=== PATIENT | male | born 1940 | race Caucasian/White ===

== ENCOUNTER 2018-07-17 11:12 | Emergency (ER) | payer MEDICARE, OTHER ==
[2018-07-17] MEDS: Lidocaine 2% Jelly 10 ML Urojet MUCMEM ONE (12:07)
--- NOTE | 2018-07-17 12:24 | EDM.PDOC ---
ED HPI GENERAL MEDICAL PROBLEM - General Chief Complaint: Genitourinary Problem Stated Complaint: PAIN IN BACK Time Seen by Provider: 07/17/18 11:45 Source of Information: Reports: Patient, Family History Limitations: Reports: No Limitations - History of Present Illness INITIAL COMMENTS - FREE TEXT/NARRATIVE: 78-year-old male who developed urinary urgency and frequency with left lower abdominal pain and left back pain overnight. No fevers or chills. He does have a history of prostatitis. Mild nausea but no vomiting. Onset: Sudden Severity: Moderate Associated Symptoms: Reports: Loss of Appetite, Malaise. Denies: Fever/Chills ( Patient is fairly uncomfortable), Headaches, Shortness of Breath bladder Pain Score (Numeric/FACES): 6 - Related Data Allergies Allergy/AdvReac Type Severity Reaction Status Date / Time No Known Allergies Allergy Verified 07/17/18 11:39 Home Meds: Home Meds Budesonide/Formoterol [Symbicort 80-4.5 MCG] 1 puff INH BID 07/17/18 [History] Levothyroxine 75 mcg PO DAILY 07/17/18 [History] Multivitamin [Multi-Vitamin Daily] 1 tab PO DAILY 07/17/18 [History] Primidone 50 mg PO TID 07/17/18 [History] acetaZOLAMIDE [Diamox] 250 mg PO BID 07/17/18 [History] ED ROS GENERAL - Review of Systems Review Of Systems: See Below Constitutional: Reports: Malaise. Denies: Fever, Chills Respiratory: Denies: Shortness of Breath Cardiovascular: Denies: Chest Pain GI/Abdominal: Reports: Abdominal Pain (Lower abdomen slightly to the left), Nausea. Denies: Vomiting : Reports: Frequency, Urgency Skin: Reports: No Symptoms Neurological: Reports: No Symptoms ED EXAM, GI/ABD - Physical Exam Exam: See Below Exam Limited By: No Limitations General Appearance: Alert, Mild Distress (Fairly uncomfortable) Eyes: Bilateral: Normal Appearance Respiratory/Chest: No Respiratory Distress, Lungs Clear Cardiovascular: Regular Rate, Rhythm GI/Abdominal Exam: Soft, Other (Some discomfort to palpation across the lower abdomen but no urinary distention appreciated) Neurological: Alert, Oriented Course - Vital Signs Last Recorded V/S: Last Vital Signs Temp 96.8 F 07/17/18 12:31 Pulse 58 L 07/17/18 12:31 Resp 16 07/17/18 12:31 BP 163/78 H 07/17/18 12:31 Pulse Ox 96 07/17/18 12:31 - Orders/Labs/Meds Orders: Active Orders 24 hr Category Date Time Status UA W/MICROSCOPIC [URIN] Stat Lab 07/17/18 12:11 Ordered Saline Lock Insert [OM.PC] Routine Oth 07/17/18 12:42 Ordered Labs: Laboratory Tests 07/17/18 Range/Units 12:11 Urine Color Yellow Urine Appearance Slightly cloudy Urine pH 6.0 (4.5-8.0) Ur Specific [place] 1.020 (1.008-1.030) Urine Protein Negative (NEGATIVE) mg/dL Urine Glucose (UA) Normal (NEGATIVE) mg/dL Urine Ketones Negative (NEGATIVE) mg/dL Urine Occult Blood Large (NEGATIVE) Urine Nitrite Negative (NEGAITVE) Urine Bilirubin Negative (NEGATIVE) Urine Urobilinogen Normal (NORMAL) mg/dL Ur Leukocyte Esterase Negative (NEGATIVE) Urine RBC 30-40 H (0-5) Urine WBC 0-5 (0-5) Ur Epithelial Cells Few Amorphous Sediment Not seen Urine Bacteria Few Urine Mucus Not seen Meds: Medications Discontinued Medications Generic Name Dose Route Start Last Admin Trade Name Freq PRN Reason Stop Dose Admin Ketorolac Tromethamine 30 mg 07/17/18 12:42 07/17/18 12:48 Toradol IVPUSH 07/17/18 12:43 30 mg ONETIME ONE Administration Lidocaine HCl 10 ml 07/17/18 11:32 07/17/18 12:07 Xylocaine 2% Jelly MUCMEM 07/17/18 11:33 10 ml ONETIME ONE Administration Sodium Chloride 10 ml 07/17/18 12:42 07/17/18 12:50 Saline Flush FLUSH 10 ml ASDIRECTED PRN Administration Keep Vein Open Tamsulosin HCl 0.4 mg 07/17/18 12:42 07/17/18 12:50 Flomax PO 07/17/18 12:43 0.4 mg ONETIME ONE Administration - Re-Assessments/Exams Free Text/Narrative Re-Assessment/Exam: 07/17/18 12:23 Bladder scan was obtained which showed a nondistended bladder. A Leonard catheter was placed for a good UA and draining of the bladder and only 70 mL was released. A CT the abdomen and pelvis was obtained to rule out renal stone on the left side. 07/17/18 12:42 Other than some hematuria the urine was negative. A CT did show a distal ureteral stone that was very small just 2 mm. He was given 30 mg of IV Toradol and 4 mg of oral Flomax. 07/17/18 13:14 Patient will be discharged with 10 additional doses of 10 mg Toradol to take every 6 hours, and should recheck in 48 hours if not improving. He should recheck sooner if pain is uncontrolled or if he develops a fever. Departure - Departure Time of Disposition: 13:27 Disposition: Home, Self-Care 01 Condition: Fair Clinical Impression: Kidney stone - Discharge Information Instructions: Kidney Stones, [id number] Referrals: PCP,None [Primary Care Provider] - Forms: ED Department Discharge Care Plan Goals: Continue your current medications, stay hydrated, and use pain control as prescribed. Recheck in 2-3 days if not improving satisfactorily, or sooner if worsening such as fever or worsening pain. - My Orders Last 24 Hours: My Active Orders 07/17/18 12:11 UA W/MICROSCOPIC [URIN] Stat 07/17/18 12:42 Saline Lock Insert [OM.PC] Routine - Assessment/Plan Last 24 Hours: My Active Orders 07/17/18 12:11 UA W/MICROSCOPIC [URIN] Stat 07/17/18 12:42 Saline Lock Insert [OM.PC] Routine
[2018-07-17] MEDS: Ketorolac 30 MG/ML SDV IVPUSH ONE (12:48)
[2018-07-17] MEDS: Sodium Chloride 0.9% 10 ML Syringe FLUSH PRN (12:50)
[2018-07-17] MEDS: Tamsulosin 0.4 MG Cap.ER PO ONE (12:50)
--- NOTE | 2018-07-17 13:34 | CT ---
Abdomen Pelvis wo Cont CLINICAL HISTORY: Left flank pain COMPARISON: None. TECHNIQUE: Axial tomographic images are obtained from the dome of the diaphragm to the pubic symphysi s without IV contrast enhancement. No oral contrast was used. Auto dosage reduction and iterative rec onstruction techniques employed. FINDINGS: The lung bases show some patchy scarring. The liver contains a proximally 1 cm low-attenuat ion focus in the right lobe. This measures fluid density and is likely a small cyst. The gallbladder has a normal appearance. The spleen has a normal size and shape. There is a small splenule. There is some gastric distention The pancreas shows some generalized fatty infiltration. No mass is seen. The adrenal glands appear normal bilaterally. The left kidney is mildly hydronephrotic. There is a punctate nonobstructing calculus in the mid to l ower pole. The right ureter is mildly dilated along its length. There is some perinephric stranding i n the mid to distal portion. The there is a 2 mm calcification in the distal ureter at the UVJ. Bladd er is contracted and thickened. There is a Leonard catheter in place. The right ureter has a normal course and caliber. The right kidney is contains a punctate stone in th e midpole. There is no hydronephrosis. The aorta shows atheromatous plaque without aneurysm. There is sigmoid diverticulosis without evidence of diverticulitis. The appendix has a normal contour IMPRESSION: 2 mm partially obstructing distal left ureteral stone at the UVJ. Diverticulosis without evidence of diverticulitis
== END 2018-07-17 13:37 | disposition home or self-care (01) ==
LOC: JP.ED 11:12
DX: N13.2 Hydronephrosis with renal and ureteral calculous obstruction (principal); Z79.899 Other long term (current) drug therapy
CPT/HCPCS: 51702; 51798; 74176; 81001; 96374; 99283; 99284; A9270; J1885; J7050